=== PATIENT | female | born 1930 | race Caucasian/White ===

== ENCOUNTER 2017-12-05 14:56 | Emergency (ER) | payer OTHER ==
[~2017-12-05] VITALS: Ht 160 cm; Wt 78.0 kg
[2017-12-05] MEDS ORDERED: SYNTHROID100 MC1 PO (15:00)
[2017-12-05] MEDS ORDERED: ASPIRIN81 M2 PO (15:00)
[2017-12-05 15:32] LABS: ABSOLUTE BASOPHILS 0.1 thou/uL (0.0-0.2); ABSOLUTE EOSINOPHILS 0.1 thou/uL (0.0-0.7); ABSOLUTE LYMPHOCYTES 1.2 thou/uL (0.8-5.3); ABSOLUTE MONOCYTES 0.7 thou/uL (0.0-1.2); BASOPHILS 0.9 %; HEMATOCRIT 36.7 % (37.0-47.0); HEMOGLOBIN 12.6 gm/dL (12.0-15.0); LYMPHOCYTES 12.9 %; MCH 32.4 pg (26.0-34.0); MCHC 34.3 g/dL (28.0-37.0); MCV 94.4 fL (80.0-100.0); MONOCYTES 7.7 %; MPV 9.2 fl. (7.2-11.1); NUCLEATED RBCS 0 /100WBC; PLATELET COUNT* 263 thou/uL (150-400); POLYS 77.5 %; RBC 3.88 mil/uL (4.20-5.00); RDW-CV 13.3 % (10.5-14.5)
[2017-12-05 15:41] LABS: ANION GAP 8 mmol/L (7-16); BUN 25 mg/dL (7-18); CALCIUM 8.2 mg/dL (8.5-10.1); CHLORIDE 102 mmol/L (98-107); CO2 26 mmol/L (21-32); CREATININE 1.1 mg/dL (0.6-1.3); GLUCOSE 220 mg/dL (70-99); POTASSIUM 3.6 mmol/L (3.5-5.1); SODIUM 136 mmol/L (136-145)
[2017-12-05 15:52] LABS: ALKALINE PHOSPHATASE 55 U/L (46-116); LIPASE 229 U/L (73-393); NT-PRO BRAIN NAT PEPTIDE 305 pg/mL (<300); SGOT 16 U/L (15-37); SGPT 17 U/L (30-65); TOTAL BILIRUBIN 0.3 mg/dL (<0.1-1.0); TOTAL PROTEIN 7.1 g/dL (6.4-8.2); TROPONIN-I LEVEL <0.06 ng/mL (<0.06)
[2017-12-05 17:39] VITALS: BP 93/63
--- NOTE | 2017-12-08 10:21 | EKG ---
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 ROEW : 1930 Requested By: Ned Sanford Order Number: [id number] MD: Aryan Kwan Measurements Intervals [place] Rate: 77 P: 11 HI: 164 QRS: -24 QRSD: 95 T: 37 QT: 382 QTc: 433 Interpretive Statements Sinus rhythm Left ventricular hypertrophy Compared to ECG 06/01/2014 14:24:21 Left ventricular hypertrophy now present Electronically Signed On 12-08-2017 10:21:34 CDT by Aryan Kwan [email or web address] <ELECTRONICALLY SIGNED> By: Aryan Kwan MD, [facility] 12/08/17 1021 1504 1504 Aryan Kwan MD, [facility] /EPI
== END 2017-12-05 17:40 | disposition home or self-care (01) ==
LOC: M.ERS 14:56
PROVIDERS: Emergency Medicine
DX: R55 Syncope and collapse (principal); E11.9 Type 2 diabetes mellitus without complications; I25.10 Atherosclerotic heart disease of native coronary artery without angina pectoris; I10 Essential (primary) hypertension